=== PATIENT | male | born 1995 | race Caucasian/White ===

== ENCOUNTER 2018-01-10 07:53 | Outpatient (CLI) | payer BC ==
--- NOTE | 2018-01-10 09:16 | CT ---
ABDOMEN AND PELVIC CT SCAN WITH IV CONTRAST: History: 22-year-old male with history of left upper quadrant abdominal pain. Family history of aneurysms. FINDINGS: Lung bases are clear. The visualized liver, gallbladder, pancreas, spleen, and adrenal glands are unr emarkable. No renal calculus or acute obstruction. No large or small bowel obstruction. Normal timi earing appendix. No abscess, adenopathy or abnormal fluid collection. IMPRESSION: Unremarkable abdomen and pelvic CT scan. No acute process. No evidence for abdominal aneurysm. POS: C
[2018-01-10] MEDS ORDERED: Iopamidol 370 76% 100 ML VIAL ONE (10:30)
== END 2018-01-10 07:54 | disposition home or self-care (01) ==
LOC: CT 07:53
PROVIDERS: ATTEND Internal Medicine
DX: R10.12 Left upper quadrant pain (principal)
CPT/HCPCS: 74177